=== PATIENT | female | born 1965 | race American Indian/Alaskan Native ===

== ENCOUNTER 2018-12-31 15:23 | Outpatient (CLI) | payer OTHER ==
--- NOTE | 2018-12-31 16:46 | XRay Report ---
PROCEDURE: XR HAND BILAT 2V TECHNIQUE: Frontal and lateral views both hands HISTORY: DISABILITY EXAM COMPARISONS: None FINDINGS: There is no evidence of fracture or subluxation of either hand. There is evidence of degenerative change of the distal interphalangeal joints of both hands with join t space loss and mild osteophyte formation. The soft tissues are unremarkable. IMPRESSION: 1. No evidence of an acute bony abnormality. 2. 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 This document is electronically signed by Felecia Joshi MD., December 31 2018 04:44:46 PM ET
--- NOTE | 2018-12-31 16:49 | XRay Report ---
PROCEDURE: XR SPINE CERVICAL 2-3V TECHNIQUE: Frontal, lateral and Y views cervical spine HISTORY: DISABILITY EXAM COMPARISONS: None FINDINGS: There is straightening of the normal lordotic curve of the cervical spine. There is mild anterolisthesis of C7 on T1 secondary to degenerative facet change at this level. The vertebral heights are maintained. There is loss of height of the C3-C4 and C4-C5 discs. There is previous anterior discectomy and fusion with retained hardware from C5 through C7. The paraspinous soft tissues are unremarkable. IMPRESSION: 1. Degenerative and postsurgical change cervical spine. If the patient remains symptomatic, MRI may be helpful. This document is electronically signed by Felecia Joshi MD., December 31 2018 04:47:05 PM ET
--- NOTE | 2018-12-31 16:50 | XRay Report ---
PROCEDURE: XR SPINE LUMBOSACRAL 2-3V TECHNIQUE: Frontal and lateral views lumbar spine and coned down lateral view lumbosacral junction HISTORY: DISABILITY EXAM COMPARISONS: None FINDINGS: There is straightening of the normal lordotic curve of the lumbar spine. The vertebral heights are maintained. There is loss of height of the L3-L4 disc. The disc spaces are otherwise maintained. There appears to be degenerative facet change in the mid and lower lumbar spine. The paraspinous soft tissues are unremarkable. IMPRESSION: 1. Straightening of the normal lordotic curve of the lumbar spine. This can be seen with muscle spasm . 2. Evidence of degenerative disc change L3-L4 level. 3. Appearance of degenerative facet change in the mid and lower lumbar spine. If further imaging is required, MRI may be helpful. This document is electronically signed by Felecia Joshi MD., December 31 2018 04:48:46 PM ET
== END 2018-12-31 15:24 | disposition home or self-care (01) ==
LOC: XRAY 15:23
PROVIDERS: ATTEND Internal Medicine
DX: Z02.71 Encounter for disability determination (principal); M47.816 Spondylosis without myelopathy or radiculopathy, lumbar region; M47.812 Spondylosis without myelopathy or radiculopathy, cervical region; M43.12 Spondylolisthesis, cervical region; M19.041 Primary osteoarthritis, right hand; M19.042 Primary osteoarthritis, left hand
CPT/HCPCS: 72040; 72100

== ENCOUNTER 2020-09-06 06:02 | Day surgery (SDC) | payer OTHER ==
[2020-08-30 12:20] LABS: Hematocrit 38.9 % (30.3-42.9); Hemoglobin 12.9 gm/dl (10.1-14.3); Mean Corpuscular HGB Conc 33 % (30-34); Mean Corpuscular Volume 90 fl (79-97); Platelet Count 162 K/mm3 (140-440); Red Blood Count 4.32 M/mm3 (3.65-5.03); Red Cell Distribution Width 14.4 % (13.2-15.2)
[2020-08-30 12:30] LABS: BUN/Creatinine Ratio 19; Blood Urea Nitrogen 17 mg/dL (7-17); Hemolysis Index 6
[~2020-09-06 06:02] MED LIST: GABAPENTIN 300 MG CAP PO NR; LACTATED RINGERS 1,000 ML IV SCH; MIDAZOLAM 2 MG/2 ML INJ IV NR
[2020-09-06] MEDS ORDERED: BACTERIOSTATIC SODIUM CHLORIDE 0.9% 30 ML VIAL INFILTRATI ONE (06:20)
[2020-09-06] MEDS ORDERED: LIDOCAINE (1%) 10 MG/1 ML VIAL 20 ML MDV ONE (06:33)
[2020-09-06] MEDS ORDERED: BUPIVACAINE/PF (0.5%) 5 MG/1 ML 30 ML VIAL INFILTRATI ONE ×3 (06:33→08:37)
[2020-09-06] MEDS ORDERED: VANCOMYCIN/NS 1 GM/250 ML 1 GM/250 ML BAG IV NR (07:00)
[2020-09-06] MEDS ORDERED: fentaNYL 100 MCG/2 ML INJ IV ONE (07:00)
[2020-09-06] MEDS ORDERED: MAGNESIUM OXIDE 400 MG TAB PO ONE (07:00)
[2020-09-06] MEDS ORDERED: ACETAMINOPHEN 500 MG TAB PO ONE (07:00)
[2020-09-06] MEDS ORDERED: ONDANSETRON 4 MG/2 ML INJ IV PRN (07:05)
[2020-09-06] MEDS ORDERED: HYDROmorphone 1 MG/1 ML INJ IV PRN ×2 (07:05)
--- NOTE | 2020-09-06 07:06 | Anesthesia Day of Surgery ---
Anesthesia Day of Surgery - Day of Surgery Patient Examined: Yes Patient H&P Reviewed: Yes Patient is NPO: Yes
--- NOTE | 2020-09-06 07:08 | Anesthesia Consultation ---
Anesthesia Consult and Med Hx Date of service: 09/06/20 - Airway Anesthetic Teeth Evaluation: Chipped (Cracked tooth left lower) ROM Head & Neck: Adequate (S/P ACDF and good ROM) Mental/Hyoid Distance: Adequate Mallampati Class: Class II Intubation Access Assessment: Good - Pre-Operative Health Status ASA Pre-Surgery Classification: ASA3 Proposed Anesthetic Plan: General Nerve Block: Pt refuses TAP block - Pulmonary Hx Smoking: Yes (SOCIAL SMOK[employer] OF CIGARS) Hx Respiratory Symptoms: No (+2FS) Hx Sleep Apnea: Yes (DX SLEEP APNEA WITH CPAP USE.) - Cardiovascular System Hx Hypertension: Yes (2003) Hx Heart Murmur: Yes (CAUSES NO PROBLEMS) - Central Nervous System Hx Back Pain: Yes Hx Psychiatric Problems: Yes (Anxiety/Depression) - Gastrointestinal Hx Gastroesophageal Reflux Disease: Yes - Endocrine Hx Renal Disease: No Hx Liver Disease: No Hx Insulin Dependent Diabetes: No Hx Thyroid Disease: No - Hematic Hx Anemia: Yes (NOT RECENT) - Other Systems Hx Cancer: No Hx Obesity: Yes
[2020-09-06] MEDS ORDERED: ROCURONIUM 50 MG/5 ML INJ IV ONE (07:36)
[2020-09-06] MEDS ORDERED: LIDOCAINE MPF (2%) 20 MG/1 ML VIAL 5 ML ONE (07:36)
[2020-09-06] MEDS ORDERED: ONDANSETRON 4 MG/2 ML INJ ONE ×2 (07:36→07:52)
[2020-09-06] MEDS ORDERED: HYDROmorphone 1 MG/1 ML INJ ONE ×2 (07:37→09:58)
[2020-09-06] MEDS ORDERED: propofoL 200 MG/20 ML VIAL IV ONE (07:37)
[2020-09-06] MEDS ORDERED: GLYCOPYRROLATE 0.4 MG/2 ML INJ ONE (07:52)
[2020-09-06] MEDS ORDERED: NEOSTIGMINE 10MG/10 ML INJ MDV ONE (07:52)
[2020-09-06] MEDS ORDERED: dexAMETHasone 20 MG/5 ML VIAL ONE (07:52)
[2020-09-06] MEDS ORDERED: PHENYLEPHRINE/NS 1,000 MCG/10 ML SYRINGE (OR USE) IV ONE (07:52)
[2020-09-06] MEDS ORDERED: SUCCINYLCHOLINE CHLORIDE 200 MG/10 ML INJ MDV ONE (07:52)
[2020-09-06] MEDS ORDERED: WATER FOR IRRIG STERILE 1,500 ML BOTTLE IR ONE (08:37)
[2020-09-06] MEDS ORDERED: LIDOCAINE (1%) 10 MG/1 ML VIAL 20 ML MDV INFILTRATI ONE (08:38)
--- NOTE | 2020-09-06 10:31 | Short Stay Summary ---
Short Stay Documentation Date of service: 09/06/20 - History Principal diagnosis: incisional hernia H&P: obtained from office - Allergies and Medications Current Medications: Allergies amoxicillin Allergy (Verified 08/30/20 08:58) Anaphylaxis ciprofloxacin Allergy (Verified 08/30/20 09:04) Swelling morphine Allergy (Verified 08/30/20 09:04) Rash sulfamethoxazole [From Bactrim] Allergy (Verified 08/30/20 08:58) Rash, itching Tetracyclines Allergy (Verified 08/30/20 09:04) Anaphylaxis tramadol Allergy (Verified 08/30/20 09:04) Swelling trimethoprim [From Bactrim] Allergy (Verified 08/30/20 08:58) Rash, itching aspirin Adverse Reaction (Verified 08/30/20 08:58) Nausea diltiazem Adverse Reaction (Verified 08/30/20 08:58) Headache omeprazole Adverse Reaction (Verified 08/30/20 09:04) Nausea Home Medications Medication Instructions Recorded Confirmed Last Taken Type Chlorthalidone [Thalitone] 25 mg PO QDAY 08/30/20 08/30/20 09/05/20 History Cholecalciferol Vit D3 [Vitamin D3 1,000 unit PO QDAY 08/30/20 08/30/20 09/05/20 History 1,000 UNIT TAB] Potassium Citrate [Potassium 20 meq PO DAILY 08/30/20 08/30/20 09/05/20 History Citrate ER] amLODIPine [Norvasc] 10 mg PO DAILY 08/30/20 09/06/20 09/06/20 05:00 History Active Medications Gabapentin (Gabapentin) 300 mg PO PREOP NR Stop: 09/06/20 23:45 Last Admin: 09/06/20 06:50 Dose: 300 mg Documented by: Hydromorphone HCl (Dilaudid) 0.25 mg IV Q10MIN PRN PRN Reason: Pain, Moderate (4-6) Hydromorphone HCl (Dilaudid) 0.5 mg IV Q10MIN PRN PRN Reason: Pain , Severe (7-10) Vancomycin HCl (Vancomycin/Ns 1 Gm/250 Ml) 1 gm in 250 mls @ 167.007 mls/hr IV PREOP NR; Protocol Stop: 09/06/20 23:00 Last Admin: 09/06/20 07:12 Dose: 167.007 mls/hr Documented by: Lactated Ringer's (Lactated Ringers) 1,000 mls @ 125 mls/hr IV DIRECT THOMPSON Last Admin: 09/06/20 06:55 Dose: 125 mls/hr Documented by: Midazolam HCl (Versed) 2 mg IV PREOP NR Stop: 09/06/20 23:59 Last Admin: 09/06/20 07:10 Dose: 2 mg Documented by: Ondansetron HCl (Zofran) 4 mg IV ONCE PRN PRN Reason: Nausea And Vomiting - Brief post op/procedure progress note Date of procedure: 09/06/20 Pre-op diagnosis: incisional hernia Post-op diagnosis: same Procedure: robotic assisted laparoscopic incisional hernia repair with mesh Anesthesia: GETA, local Findings: 5x2.5 cm total hernia defect in midline at umbilicus. Old mesh present Surgeon: SAIMA PAINTING Director Of Nursing: MARTY BLANCO Estimated blood loss: minimal Pathology: none Condition: stable - Hospital course Hospital course: Pt observed in PACU and discharged to home in stable condition when criteria met - Disposition Condition at discharge: Good Disposition: DC-01 TO HOME OR SELFCARE Short Stay Discharge Plan Activity: other (no heavy lifting) Diet: regular Wound: open to air, per your surgeon's advice Additional Instructions: SEE PRINTED DISCHARGE INSTRUCTIONS Follow up with: [facility] [Primary Care Provider] - 7 Days SAIMA PAINTING DO [Staff Physician] - 14 Days Prescriptions: Gabapentin 300 mg PO BID #6 capsule HYDROcodone/APAP 5-325 [[place] 5/325] 1 each PO Q6HR PRN #20 tablet PRN Reason: Pain , Severe (7-10) Ondansetron [Zofran Odt] 4 mg PO Q8HR PRN #30 tab.rapdis PRN Reason: Nausea
[2020-09-06] MEDS ORDERED: HYDROcodone/ACETAMINOPHEN 5-325 MG TAB PO PRN (11:00)
[2020-09-06 11:46] VITALS: BP 100/66
--- NOTE | 2020-09-06 12:06 | Post Anesthesia Evaluation ---
- Post Anesthesia Evaluation Patient Participated: Yes Airway Patent: Yes Stable Respiratory Function: Yes Nausea/Vomiting: No Temp > 96.8F: Yes Pain Manageable: Yes Adequeate Hydration: Yes Anesthesia Complications: No Block Receding Appropriately: Not Applicable Patient on Ventilator: No
--- NOTE | 2020-09-06 15:59 | Operative Report ---
Operative Report Operative Report: Date of procedure: 09/06/20 Pre-op diagnosis: incisional hernia Post-op diagnosis: same Procedure: robotic assisted laparoscopic incisional hernia repair with mesh Anesthesia: SHAREE local Findings: 5x2.5 cm total hernia defect in midline at umbilicus. Old mesh present Surgeon: SAIMA PAINTING Farmworker: MARTY BLANCO Estimated blood loss: minimal Pathology: none Condition: stable Hospital course: Pt observed in PACU and discharged to home in stable condition when criteria met HPI and indication: 55-year-old female who presented to the surgery clinic for evaluation of a painful bulge at her umbilicus. The patient had a history of an open umbilical hernia repair in the past. On physical exam she was found to have a reducible periumbilical incisional hernia. It was recommended that the hernia be repaired. All risk, benefits, alternatives surgery discussed with patient questions answered. It was recommended that the hernia be repaired robotically. Alternatives such as open versus laparoscopic repair were also discussed. The patient was in agreement and consent obtained. Procedure in detail: The patient was identified in the preoperative area and taken back to the operating room and placed on the operating room table in supine position. After anesthesia was induced, both arms were tucked with all bony prominences padded appropriately. The abdomen was then prepped and draped in usual sterile fashion and a timeout was performed. Local anesthetic was infiltrated to all skin incision sites. A kadi incision was made in the left upper quadrant at Tejada's point through which a Veress needle was inserted. The Veress needle position was confirmed using the saline drop test and the abdomen insufflated to 15 mmHg without incident. A 5 mm incision was made in the right upper quadrant through which a 5 mm Optiview trocar was placed under direct visualization. The abdomen was inspected and there was no underlying injury to any of the abdominal structures. The Veress needle was identified and removed. The incisional hernia at the umbilicus was visualized. A 12 mm balloon trocar was placed in the right lateral abdomen and an 8 mm robotic trocar in the right lower quadrant under direct visualization. The 5 mm right upper quadrant trocar was replaced with an 8 mm robotic trocar under direct visualization. The patient was tilted to the left and the robot docked. A fenestrated bipolar was placed in arm #2 and a monopolar scissor in arm #1. The surgeon was then transferred to the console. I for started by creating a preperitoneal flap. The peritoneum was scored to the right of the hernia defect using a monopolar scissor and a preperitoneal plane developed in an avascular plane. Using a combination of blunt dissection and cautery the plane superior to and inferior to the hernia was developed. 2 tiny posterior fascial defects were also encountered with incarcerated preperitoneal fat which was reduced. There was a moderate amount of preperitoneal fat incarcerated in the umbilical defect which was reduced. This hernia defect measured 2.5 x 2.5 cm. With the addition of the 2 tiny supraumbilical defects the total hernia measurement was 5 x 2.5 cm. The peritoneal flap dissection was continued in order to have enough space to accommodate mesh. It was decided to fix the hernia with a 11.4 cm Bard ventralite composite mesh. The mesh along with suture material placed into the abdomen by the nursing assistants teacher surgeon. The hernia defect was closed in a running fashion using an 0 Vloc stitch. The mesh was placed in the preperitoneal space and centered. The uncoated side was placed against the abdominal wall. The mesh was sutured into place in all 4 quadrants using interrupted 2-0 Vicryl stitches. The mesh laid flat in the preperitoneal space with adequate overlap of the hernia. The peritoneum was approximated using 3 0 VLoc running stitch. Larger defects in the peritoneal flap were closed using [id number] stitches with a 2-0 Vicryl. The robot was then undocked and the surgeon scrubbed back in. The remainder of the case was performed laparoscopically. All sharp and suture material was removed under direct visualization. The 12 mm port was removed and the fascia closed with a 0 Vicryl interrupted stitch using the Howard Barrios device. The remainder of the ports were removed under direct visualization and the abdomen desufflated. The skin incisions were closed with 4-0 Monocryl subcuticular stitches and skin glue. Local anesthetic was once again infiltrated to all skin incisions. A 4 x 4 gauze was placed in the umbilicus and secured with Tegaderm. At the end of the case, all sponge, instrument, sharp counts were correct 2. The patient was awoken from anesthesia, extubated and taken to PACU in stable condition.
== END 2020-09-06 12:30 | disposition home or self-care (01) ==
LOC: OR 06:02
PROVIDERS: ATTEND Surgery
DX: K43.2 Incisional hernia without obstruction or gangrene (principal); Z20.828 Contact with and (suspected) exposure to other viral communicable diseases; K42.0 Umbilical hernia with obstruction, without gangrene; I10 Essential (primary) hypertension; G47.30 Sleep apnea, unspecified; K21.9 Gastro-esophageal reflux disease without esophagitis; E66.9 Obesity, unspecified; M19.90 Unspecified osteoarthritis, unspecified site; F17.210 Nicotine dependence, cigarettes, uncomplicated; F32.9 Major depressive disorder, single episode, unspecified; F41.9 Anxiety disorder, unspecified; D64.9 Anemia, unspecified; Z88.6 Allergy status to analgesic agent; Z88.5 Allergy status to narcotic agent; Z88.8 Allergy status to other drugs, medicaments and biological substances; Z79.899 Other long term (current) drug therapy; Z90.710 Acquired absence of both cervix and uterus; Z98.890 Other specified postprocedural states; Z68.30 Body mass index [BMI] 30.0-30.9, adult
CPT/HCPCS: 36415; 49653; 49655; 80048; 85027; C1781; J0330; J1100; J1170; J2250; J2370; J2405; J2704; J2710; J3370; J7120; S2900; U0003